=== PATIENT | male | born 1965 | race American Indian/Alaskan Native ===

== ENCOUNTER 2016-10-14 04:26 | Emergency (ER) | payer OTHER ==
[2016-10-14 06:33] VITALS: BP 142/99
[2016-10-14] MEDS ORDERED: BENADRYL IM ONE (09:17)
--- NOTE | 2016-10-14 09:21 | Emergency Department Report ---
ED Rash HPI - HPI Chief Complaint: Skin Rash Stated Complaint: RASH Time Seen by Provider: 10/14/16 08:36 Rash Symptoms: Yes Itching, No Facial Swelling, No Tongue/Oral Swelling, No Breathing Difficulties, No Choking Sensation, No Wheezing/Dyspnea, No Peeling, No Blistering, No Fever, No Lightheaded, No Malaise, No Myalgias Severity: mild Other History: 50-year-old malesignificant past medical history presents with complaint of itchy rash to the nape of his neck and bilateral arms and shoulders. Has been occurring for approximately 3 weeks. Itchy rash to bilateral upper arms. Denies any facial swelling, tongue swelling, shortness of breath. Denies any recent travel. Denies use of new cosmetics or new pets, scents. States that he was treated and his primary care doctor's office approximately 3 weeks ago with a shot of steroids but the rash did not significantly improve. States that it is itchy and that his skin is dry. Denies any history of eczema. Denies any fever or chills ED Review of Systems ROS: Stated complaint: RASH Other details as noted in HPI Constitutional: denies: chills, fever Eyes: denies: eye pain, eye discharge, vision change ENT: denies: ear pain, throat pain Respiratory: denies: cough, shortness of breath, wheezing Cardiovascular: denies: chest pain, palpitations Endocrine: no symptoms reported Gastrointestinal: denies: abdominal pain, nausea, diarrhea Genitourinary: denies: urgency, dysuria Musculoskeletal: denies: back pain, joint swelling, arthralgia Skin: denies: rash, lesions Neurological: denies: headache, weakness, paresthesias Psychiatric: denies: anxiety, depression Hematological/Lymphatic: denies: easy bleeding, easy bruising ED Past Medical Hx - Past Medical History Previous Medical History?: No - Social History Smoking Status: Never Smoker - Medications Home Medications: Home Medications Medication Instructions Recorded Confirmed Last Taken Type Doxycycline [Vibramycin CAP] 100 mg PO Q12HR #14 capsule 10/14/16 Unknown Rx Hydroxyzine HCl 25 mg PO BID PRN #25 tablet 10/14/16 Unknown Rx Permethrin 5% [Acticin 5% CREAM] 1 applicatio TP ONCE #1 tube 10/14/16 Unknown Rx Skin Emollient [Aquaphor] 1 applic TP BID #1 tube 10/14/16 Unknown Rx Triamcinolone 0.1% [Kenalog 0.1% 1 applic TP TID #1 tube 10/14/16 Unknown Rx CREAM] Rash Exam - Exam General: Vital signs noted. No distress. Alert and acting appropriately. HEENT: No Periorbital Edema, No Conjuctival Injection, No Chemosis, No Perioral Edema, No Tongue Edema, No Uvular Edema, No Compromised Airway, No Drooling Lungs: Yes Good Air Exchange (Normal Breath Sounds), No Wheezes, No Ronchi, No Stridor, No Cough, No Labored Respirations, No Retractions, No Use of Accessory Muscles, No Other Abnormal Lung Sounds Heart: Yes Regular, No Murmur Skin: Yes Maculopapular Rash (maculopapular rash with dry scaly skin on shoulders and lateral arms. No involvement of palms or soles or groin), No Urticarial Rash, No Morbilliform rash, No Bulla(e), No Excoriations, No Weeping , No Tenderness, No Erythema, No Edema, No Encrustations, No Other Other: Positive: Abdomen Normal, Neurologic Normal, Musculoskeletal Normal ED Course Vital Signs 10/14/16 06:28 Temperature 98.1 F Pulse Rate 73 Respiratory 18 Rate Blood Pressure 142/99 O2 Sat by Pulse 99 Oximetry ED Medical Decision Making - Medical Decision Making A/P: Scabies versus follicular eczema 1-will treat for both scabies and eczema with permethrin topical, course of doxycycline, topical triamcinolone, antihistamines 2-referral to dermatology 3- patient denies any fevers chills facial swelling shortness of breath and there is no involvement of palms or soles or genitalia Critical care attestation.: If time is entered above; I have spent that time in minutes in the direct care of this critically ill patient, excluding procedure time. ED Disposition Clinical Impression: Follicular eczema, Scabies Disposition: TO HOME OR SELFCARE Is pt being admited?: No Does the pt Need Aspirin: No Condition: Stable Instructions: Folliculitis (ED), Scabies (ED) Additional Instructions: [email or web address] Prescriptions: Doxycycline [Vibramycin CAP] 100 mg PO Q12HR #14 capsule Hydroxyzine HCl 25 mg PO BID PRN #25 tablet PRN Reason: Itching Permethrin 5% [Acticin 5% CREAM] 1 applicatio TP ONCE #1 tube Skin Emollient [Aquaphor] 1 applic TP BID #1 tube Triamcinolone 0.1% [Kenalog 0.1% CREAM] 1 applic TP TID #1 tube Referrals: [facility] [Provider Group] - 3-5 Days LORENZA BEASLEY MD [Staff Physician] - 3-5 Days Forms: Work/School Release Form(ED) Time of Disposition: 09:22
== END 2016-10-14 09:44 | disposition home or self-care (01) ==
LOC: ED 04:26
DX: L30.8 Other specified dermatitis (principal); B86 Scabies
CPT/HCPCS: 96372; 99282; J1200